=== PATIENT | male | born 1960 | race Caucasian/White ===

== ENCOUNTER 2023-05-24 20:18 | Emergency (ER) | payer OTHER, SELFPAY ==
[2023-05-24 20:20] VITALS: BP 134/79
[2023-05-24 21:13] VITALS: BP 130/76
[2023-05-24 21:18] VITALS: BMI 30.3
--- NOTE | 2023-05-24 21:18 | ED.GENMED ---
History of Present Illness
<Agapito Leggett PA-C - Last Filed: 05/24/23 23:06>
General
Chief Complaint: Heart Rate Problem
Source: patient and spouse
Time Seen by Provider: 05/24/23 20:54
History of Present Illness
History of Present Illness:
63-year-old male presenting emergency department for evaluation after he started with palpitations and some chest discomfort that started 30 minutes prior to arrival to the emergency department shortly after patient had eaten some pizza and had 2
vodka beverages with his dinner stating this felt similar to when he was in an episode of atrial fibrillation 1 year ago. Patient takes Eliquis 5 mg twice daily as well as Cardizem 120 mg twice daily and reports good compliance with this. On
arrival to the emergency department patient states his symptoms are improved although he is still noting a fluttering sensation in his chest. Denies any fevers or recent illnesses, cough, lower extremity edema or any other concerns. Patient
follows with [facility] cardiology and states he had an appointment with them not too long ago and that everything was unremarkable during that evaluation.
<Dhaval Morales MD - Last Filed: 05/24/23 23:26>
Travel History
Have you had any contact with someone who has COVID-19?: No
Do you have any symptoms of coronavirus? Fever > 100 degrees, chills, cough, shortness of breath, sore throat, loss of taste or smell, muscle aches, or headache?: No
Past History
<Agapito Leggett PA-C - Last Filed: 05/24/23 23:06>
Past History
ED Past Medical History: Arrthythmia, HTN and Hypercholesterolemia
ED Past Surgical History: None
Social History
Tobacco: Non-smoker
Alcohol: Occasional
Drug: None
Personal:
Living: with family
Review of Systems
<Agapito Leggett PA-C - Last Filed: 05/24/23 23:06>
Review of Systems
All Other Systems: ROS reviewed and negative except as documented in HPI and ROS
Phy Exam
<Agapito Leggett PA-C - Last Filed: 05/24/23 23:06>
Physical Exam
Physical Exam:
GENERAL: Alert , in no apparent distress
EYE: Clear conjunctiva
NECK: Supple
ENT: o/p clr, mmm.
CARDIAC: Irregularly irregular, tachycardic
LUNGS: Clear breath sounds bilaterally, no acute respiratory distress,
NEUROLOGICAL: Alert and oriented
SKIN: Warm and dry, skin intact.
MUSCULOSKELETAL: No edema, well perfused.
PSYCH: Normal and appropriate interaction.
Scores
<Agapito Leggett PA-C - Last Filed: 05/24/23 23:06>
Heart Failure Risk
Heart Failure Risk Score: Not Applicable
Heart Score for Chest Pain Patients
STEMI patient?: Not applicable
Withdrawal Assessment of Alcohol
Withdrawal Assessment Completed?: Not applicable
Course
<Agapito Leggett PA-C - Last Filed: 05/24/23 23:06>
Orders/Labs/Results
Orders:
Orders
05/24/23 20:19
EKG [Electrocardiogram (*1)] Urgent
Reason for Study: Atrial Fibrillation
EKG- Treatment ONCE
05/24/23 21:16
Diltiazem HCl [Cardizem] 10 mg IV NOW STA
05/24/23 22:30
Diltiazem Extended Release [Cardizem Cd] 120 mg PO NOW STA
Vital Signs
Initial and Last Documented VS:
Initial Vital Signs
Temp Pulse Resp BP Pulse Ox
98.0 F 134 18 134/79 94
05/24/23 20:20 05/24/23 20:20 05/24/23 20:20 05/24/23 20:20 05/24/23 20:20
Last Documented Vital Signs
Temp Pulse Resp BP Pulse Ox
98.0 F 122 18 105/63 95
05/24/23 20:20 05/24/23 22:40 05/24/23 20:20 05/24/23 22:40 05/24/23 21:14
<Dhaval Morales MD - Last Filed: 05/24/23 23:26>
Orders/Labs/Results
Orders:
Orders
05/24/23 20:19
EKG [Electrocardiogram (*1)] Urgent
Reason for Study: Atrial Fibrillation
EKG- Treatment ONCE
05/24/23 21:16
Diltiazem HCl [Cardizem] 10 mg IV NOW STA
05/24/23 22:30
Diltiazem Extended Release [Cardizem Cd] 120 mg PO NOW STA
Vital Signs
Initial and Last Documented VS:
Initial Vital Signs
Temp Pulse Resp BP Pulse Ox
98.0 F 134 18 134/79 94
05/24/23 20:20 05/24/23 20:20 05/24/23 20:20 05/24/23 20:20 05/24/23 20:20
Last Documented Vital Signs
Temp Pulse Resp BP Pulse Ox
98.0 F 122 18 105/63 95
05/24/23 20:20 05/24/23 22:40 05/24/23 20:20 05/24/23 22:40 05/24/23 21:14
<Agapito Leggett PA-C - Last Filed: 05/24/23 23:06>
MDM/Problems Addressed
Differential Diagnosis Includes:
Atrial fibrillation exacerbation, electrolyte disturbance, no concern for ACS
MDM/Problems Addressed:
63-year-old male presenting emergency department for evaluation of palpitations and some chest discomfort with sudden onset while eating dinner and after 2 alcoholic beverages. Patient arrived to the ER and found to be in atrial fibrillation which
was likely exacerbated by his alcoholic beverages tonight. Patient is hemodynamically stable. Discussed risk versus benefit of rate versus rhythm management and patient was initially agreeable to cardioversion but after further consultation
ultimately decided he would rather rate control. Will give a 10 mg bolus of Cardizem and a 120 mg oral dose and reassess. Will consult with patient's cardiology team to help with outpatient management if patient remains stable and relatively
asymptomatic.
Chronic conditions affecting care: Arrhythmia
Acute Exacerbation and/or Progression of Chronic Illness: Arrhythmia
<Agapito Leggett PA-C - Last Filed: 05/24/23 23:06>
*Pulse Oximetry
Patient hypoxic: no
*EKG
Heart Rate: 123
Rate: tachycardiac
Rhythm: a-fib
Mauldin: normal axis
Ischemia: no ischemia
*Sock Turner Interpretation
Rate: tachycardiac
Rhythm: a-fib
*Critical Care Note
Total Time (30-74mins, 75-104mins- exclusive of procedures): Not Applicable
Data Reviewed
Review of Other/Old Records Reveals: Labs and Records
Source: patient
<Agapito Leggett PA-C - Last Filed: 05/24/23 23:06>
Patient Management
Discussion with other providers: Staff Radiographer
Escalation/DeEscalation of care consider admission/obs:
I spoke to Dr. Montana from cardiology office who is okay with us increasing patient's p.o. Cardizem to 180 mg p.o. daily. Patient's heart rate is steady between 105 bpm and 120 bpm following medications. He feels comfortable with discharge home.
Aware of return precautions to the emergency department. Will follow-up with restaurant crew.
<Dhaval Morales MD - Last Filed: 05/24/23 23:26>
ED Attending Note
Patient seen and examined by attending physician: Yes
I performed the substantive portion of visit, reviewed & personally made and approve the management plan that is documented in note by myself or MAGALY.: Yes
ED Attending Note:
63-year-old man onset of heart racing and palpitations about 2 hours prior to ER arrival. Patient on Eliquis. On Cardizem 120/day. No shortness of breath. Had a very brief episode of atypical chest pain that resolved quickly.
Patient is in no distress. Stable vital signs. Mildly tachycardic and irregular. No respiratory distress. Warm and dry.
EKG shows mild RVR with atrial fibrillation. Discussed options of cardioversion versus further rate control and close follow-up. He would prefer this approach which is reasonable. We discussed with cardiology. Increased his Cardizem to follow-up
early this week
-
Portions of this chart may have been created with voice recognition software.� Occasional wrong word or��sound alike� substitutions may have occurred due to the inherent limitations of voice recognition software.
Discharge Plan
Departure
Patient Disposition: Home (Routine Discharge)
Date of Disposition: 05/24/23
Time of Disposition: 22:30
Patient with high blood pressure during this ER visit?: No
Discharge Problem:
Atrial fibrillation
Instructions: Atrial Fibrillation (DC), Chest Pain CBC Follow Up
Prescriptions:
New
diltiazem HCl [Cardizem LA] 180 mg tablet extended release 24 hr
180 mg PO DAILY Qty: 30 0RF
No Action
diltiazem HCl [Cartia XT] 120 mg capsule,extended release 24hr
120 mg PO DAILY Qty: 30 0RF
Eliquis 5 mg tablet
5 mg PO BID 30 Days Qty: 60 0RF
Referrals:
Dhaval Lucero DO [Family Provider] -
Interventions
Interventions:
*Risk Screen - Suicide Last Done: 05/24/23 20:20
*General Assessment Last Done: 05/24/23 20:20
*Neglect/Abuse Screening Last Done: 05/24/23 20:20
ED- Fall Risk Assessment Last Done: 05/24/23 21:14
*ED COVID-19 Vaccine History Last Done: 05/24/23 20:20
ED- Cardiac Assessment Last Done: 05/24/23 21:14
ED- Pulmonary Assessment Last Done: 05/24/23 21:14
[2023-05-24] MEDS: CARDIZEM 10 MG IV (21:28)
[2023-05-24 22:00] VITALS: BP 118/51
[2023-05-24 22:40] VITALS: BP 105/63
[2023-05-24] MEDS: CARDIZEM CD 120 MG PO (22:40)
== END 2023-05-24 22:50 | disposition home or self-care (01) ==
LOC: EMR 20:18
PROVIDERS: EMERGENCY PHYSICIAN Emergency Medicine; FAMILY PHYSICIAN Family Medicine
DX: I48.91 Unspecified atrial fibrillation (principal); R07.89 Other chest pain; I10 Essential (primary) hypertension; E78.00 Pure hypercholesterolemia, unspecified; Z79.01 Long term (current) use of anticoagulants; Z88.1 Allergy status to other antibiotic agents
CPT/HCPCS: 99284; 96374; 93005